=== PATIENT | female | born 1955 | race Caucasian/White ===

== ENCOUNTER 2020-10-31 13:13 | Emergency (ER) | payer OTHER, SELFPAY ==
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
[2020-10-31 13:24] VITALS: BP 117/78; PULSE 69; RESP 16; TEMP 36.5; O2SAT 99
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
== END 2020-10-31 14:25 | disposition home or self-care (01) ==
PROVIDERS: Emergency Provider Registered Nurse Emergency
DX: S52.571A Other intraarticular fracture of lower end of right radius, initial encounter for closed fracture (principal); W18.30XA Fall on same level, unspecified, initial encounter
CPT/HCPCS: 99283; 73110; 99282

== ENCOUNTER 2020-11-13 14:13 | Outpatient (CLI) | payer OTHER, SELFPAY ==
--- NOTE | 2020-11-13 14:00 | DI.RAD_ITS ---
EXAM: XR WRIST RT COMPLETE CLINICAL HISTORY: follow up TECHNIQUE: COMPARISON: CR XR WRIST RT COMPLETE from 10/31/2020 FINDINGS: Three views were obtained. Previously described fracture of the distal radius is again noted, no kristina ss interval change in alignment in comparison prior examination October 31. IMPRESSION: RADIATION DOSE DELIVERED: Total DLP
== END 2020-11-13 14:14 | disposition home or self-care (01) ==
LOC: DIORS 14:14
PROVIDERS: Visit Provider Physician Assistant Surgical
DX: S52.591A Other fractures of lower end of right radius, initial encounter for closed fracture (principal); S63.591A Other specified sprain of right wrist, initial encounter; W19.XXXA Unspecified fall, initial encounter
CPT/HCPCS: 99213; 73110

== ENCOUNTER 2020-12-05 10:23 | Outpatient (CLI) | payer OTHER, SELFPAY ==
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
== END 2020-12-05 10:24 | disposition home or self-care (01) ==
LOC: DIORS 10:24
PROVIDERS: Referring Provider Student in an Organized Health Care Education/Training Program; Visit Provider Student in an Organized Health Care Education/Training Program
DX: S52.591D Other fractures of lower end of right radius, subsequent encounter for closed fracture with routine healing (principal); X58.XXXD Exposure to other specified factors, subsequent encounter
CPT/HCPCS: 99213; 73100

== ENCOUNTER 2021-01-15 12:06 | Outpatient (CLI) | payer OTHER, SELFPAY ==
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
== END 2021-01-15 12:07 | disposition home or self-care (01) ==
LOC: DIORS 12:06
PROVIDERS: Referring Provider Student in an Organized Health Care Education/Training Program; Visit Provider Student in an Organized Health Care Education/Training Program
DX: S52.591D Other fractures of lower end of right radius, subsequent encounter for closed fracture with routine healing (principal); X58.XXXD Exposure to other specified factors, subsequent encounter; M85.88 Other specified disorders of bone density and structure, other site
CPT/HCPCS: 99213; 73100

== ENCOUNTER 2021-12-13 17:22 | Emergency (ER) | payer MEDICARE, SELFPAY ==
[2021-12-13] VITALS (12 sets, daily range): BP systolic 112–139; BP diastolic 70–76; PULSE 78–84; RESP 18; TEMP 37; O2SAT 96–99
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
[2021-12-13] MEDS: Lidocaine/Epinephri/Tetracaine Topical Gel 3 ML TP (17:55)
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
--- NOTE | 2021-12-13 18:25 | NUR.NOTE ---
Nursing Note: PT INFO GIVEN TO CARE MANAGEMENT TO ESTABLISH CARE
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
== END 2021-12-13 19:44 | disposition home or self-care (01) ==
LOC: ER 19:53
PROVIDERS: Emergency Provider Physician Assistant
DX: S01.81XA Laceration without foreign body of other part of head, initial encounter (principal); S62.314A Displaced fracture of base of fourth metacarpal bone, right hand, initial encounter for closed fracture; S62.316A Displaced fracture of base of fifth metacarpal bone, right hand, initial encounter for closed fracture; S09.8XXA Other specified injuries of head, initial encounter; V19.9XXA Pedal cyclist (driver) (passenger) injured in unspecified traffic accident, initial encounter
CPT/HCPCS: 12013; 29125; 90471; 99284; 70450; 73130; 99283

== ENCOUNTER 2021-12-25 14:07 | Outpatient (CLI) | payer MEDICARE, SELFPAY ==
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
== END 2021-12-25 14:08 | disposition home or self-care (01) ==
LOC: DIORS 14:07
PROVIDERS: Visit Provider Physician Assistant
DX: S62.314D Displaced fracture of base of fourth metacarpal bone, right hand, subsequent encounter for fracture with routine healing (principal); S62.316D Displaced fracture of base of fifth metacarpal bone, right hand, subsequent encounter for fracture with routine healing; X58.XXXD Exposure to other specified factors, subsequent encounter
CPT/HCPCS: 99214; 73120

== ENCOUNTER 2022-08-06 04:00 | Outpatient (CLI) | payer MEDICARE, SELFPAY ==
[2022-08-06 12:20] LABS: HGB 12.6 g/dL (11.2-15.7); MCH 30.5 pg (27.0-33.0); MCHC 31.5 % (32.0-36.0); MCV 97 fL (80-95); MPV 11.7 fL (8.0-11.0); Platelet Count 250 10^3/uL (130-400); RBC 4.13 10^6/uL (3.93-5.22); RDW 13.3 % (11.7-14.6); RDW-SD 47.5 fL; WBC 4.41 10^3/uL (4.4-10.8)
[2022-08-06 12:46] LABS: ALT 23 U/L (14-59); AST 21 U/L (15-37); Albumin 3.7 g/dL (3.4-5.0); Alkaline Phosphatase 68 U/L (46-116); Anion Gap 5.5 mmol/L (3-11); BUN 14 mg/dL (7-18); Bilirubin, Total 0.6 mg/dL (0.2-1.0); CO2 29.5 mmol/L (21.0-32.0); CREATININE 0.7 mg/dL (0.55-1.02); Calcium 9.4 mg/dL (8.5-10.1); Calculated LDL 105 mg/dL (<100); Chloride 105 mmol/L (98-107); Cholesterol 193 mg/dL (<200); Estimated GFR 94.73 (mL/min/1.73m2); Glucose 92 mg/dL (74-106); HDL Cholesterol 80 mg/dL (40-60); Potassium 3.7 mmol/L (3.5-5.1); Sodium 140 mmol/L (136-145); Triglyceride 40 mg/dL (<150)
[2022-08-06 13:37] LABS: Hemoglobin A1C 5.3 % (<5.7)
== END 2022-08-06 04:01 | disposition home or self-care (01) ==
LOC: LOS 04:00
PROVIDERS: PCP Nurse Practitioner Family; Visit Provider Nurse Practitioner Family
DX: E55.9 Vitamin D deficiency, unspecified (principal); K64.9 Unspecified hemorrhoids; M85.80 Other specified disorders of bone density and structure, unspecified site; Z76.89 Persons encountering health services in other specified circumstances; E78.5 Hyperlipidemia, unspecified; R73.01 Impaired fasting glucose
CPT/HCPCS: 36415; 80053; 80061; 82306; 85027; 83036; 84443

== ENCOUNTER 2022-09-22 01:53 | Outpatient (CLI) | payer MEDICARE, SELFPAY ==
--- NOTE | 2022-09-22 06:24 | DI.DEXA_ITS ---
Exam(s) XR DEXA BONE DENSITY W/WO RIA EXAM: XR DEXA BONE DENSITY W/WO RIA CLINICAL HISTORY: osteopenia,SCREENING FOR OSTEOPOROSIS, Z78.0 TECHNIQUE: COMPARISON: from 01/01/2021 FINDINGS: Lateral Spine Image: Unremarkable. No compression deformities identified. Left hip: Total T-Score: -2.4. This compares to -2.3 on the prior examination. Total Z-Score: -1.1 T- and Z-scores: Findings are consistent with osteopenia. Lumbar Spine: Total T-Score: -1.9. This compares to -2.3 on the prior examination. Total Z-Score: 0.0 T- and Z-scores: Findings are consistent with osteopenia. IMPRESSION: Osteopenia in the lumbar spine and left hip.
== END 2022-09-22 02:13 ==
PROVIDERS: PCP Nurse Practitioner Family; Visit Provider Nurse Practitioner Family
DX: M85.88 Other specified disorders of bone density and structure, other site (principal); Z78.0 Asymptomatic menopausal state
CPT/HCPCS: 77080

== ENCOUNTER 2023-03-05 02:36 | Outpatient (CLI) | payer MEDICARE, SELFPAY ==
--- NOTE | 2023-03-05 08:45 | DI.MAMMO_ITS ---
Exam(s) MAMMO SCREENING EXAM: MAMMO SCREENING CLINICAL HISTORY: screening, Z12.39 TECHNIQUE: Mammograms were interpreted according to the usual protocol including computer analysis w [employer] CAD system, tomosynthesis and C-view imaging. COMPARISON: Outside comparison films have been requested but not received at this time. The prior e xams become available, an addendum will be issued. FINDINGS: The breasts are composed of heterogeneously dense fibroglandular densities, Breast Density category C . No suspicious masses or suspicious microcalcifications are seen. No skin thickening or abnormal axillary lymph nodes are seen. IMPRESSION: BI-RADS Category 1, Negative mammogram. Yearly screening mammography is recommended. Breast Density Category C, heterogeneously Dense. The mammogram demonstrates the patient's breast tissue is dense. Dense breast tissue is very common a nd is not abnormal but dense breast tissue can make it harder to find cancer on a mammogram. Also, de nse breast tissue may increase breast cancer risk. This information about the result of the mammogram report was provided to the patient to raise their awareness. Use this report when you speak with the patient about their risks for breast cancer, which includes their family history. At that time, you may recommend additional screening tests (Ultrasound or MRI) as they might be useful based on their r isk. A negative radiographic report should not delay biopsy if a dominant or clinically suspicious mass is present. Up to ten percent of cancers are not identified on mammography. A negative report may reinforce clinical impression. Adenosis and dense breasts may obscure an underlying neoplasm. False positive reports average 6 to 10%.
== END 2023-03-05 02:56 ==
PROVIDERS: PCP Nurse Practitioner Family; Visit Provider Nurse Practitioner Family
DX: Z12.31 Encounter for screening mammogram for malignant neoplasm of breast (principal)
CPT/HCPCS: 77063; 77067

== ENCOUNTER 2024-01-18 16:33 | Emergency (ER) | payer MEDICARE, SELFPAY ==
[2024-01-18 16:37] VITALS: BP 124/80; PULSE 80; RESP 16; TEMP 36.8; O2SAT 98
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
--- NOTE | 2024-01-18 17:03 | DI.CT_ITS ---
Exam(s) CT NECK CHEST ABD PEL W EXAM: CT NECK CHEST ABD PEL W CLINICAL HISTORY: pain and swelling at manubrium, difficulty swallow TECHNIQUE: Imaging Protocol: Axial computed tomography images with coronal and sagittal reformatted images were created and reviewed CONTRAST MATERIAL: Oral: / no Intravenous: Omnipaque 350 Contrast volume:150 ml COMPARISON: CT CT HEAD CERVICAL SPINE WO from 01/18/2024 CR XR SHOULDER LT COMPLETE 2+V from 01/18/2024 FINDINGS: Neck: Parotids/submandibular/thyroid gland: Nodules both thyroid lobes. Ultrasound could be considered fo r further evaluation. Lymphadenopathy: There are scattered lymph nodes seen along the level one to level three all measuri ng less than 8 mm in short axis diameter which are physiologic in nature. Carotids/Jugular: Within normal limits. Soft tissues: The floor the mouth is unremarkable. The epiglottis and vocal cords are within normal limits. Bones: No fracture. No lytic or blastic lesions. Chest: Tracheobronchial tree: Patent where visualized. Mediastinum and Leydi: No dominant adenopathy or fluid collection. Pulmonary parenchyma: No consolidation or dominant measurable mass. Pleura: No effusion or pneumothorax. Heart/Aorta: Thoracic aorta non-dilated. The heart is not dilated. No coronary artery calcifications are seen. Pulmonary arteries: No evidence of emboli. Bones: Nondisplaced fracture of the manubrium. No lytic or blastic lesions. ABDOMEN: Liver: Normal density. No measurable mass. Gallbladder and biliary tract: No radiodense calculus or dilation. Pancreas: Normal density, no abnormal calcifications or inflammatory process. Spleen: Normal. Kidneys: Normal size, contour and axis. No radiodense stones or obstructive uropathy. No suspicious m asses seen. Adrenal glands: No masses seen. Abdominal Aorta: Abdominal portion non-dilated. Minimal atherosclerotic changes. PELVIS: Bladder: Symmetric distention, no gross wall thickening. Bowel: No obstruction or bowel wall thickening. Peritoneal cavity: No ascites, collection or mesenteric inflammatory response. Reproductive: Unremarkable. Bones: No acute fractures. Old bilateral L5 spondylolysis and L5-S1 spondylolisthesis. Advanced deg enerative disc changes at L5-S1. IMPRESSION: Nondisplaced fracture of the manubrium. No additional fractures in the chest abdomen or pelvis. No acute abnormality in the abdomen or pelvis. Incidental thyroid nodules. Nonemergent thyroid ultrasound could be performed for further evaluation . RADIATION DOSE DELIVERED: 1,155.13mGy.cm Total DLP 1,155.13mGy.cm Total DLP DATA REPOSITORY: All CT scans at this facility are submitted to the National Radiology Data Registry (NRDR) Dose Index Registry (DIR) with the [employer] (ACR). RADIATION OPTIMIZATION: All CT scans at this facility use at least one of these dose optimization te chniques: automated exposure control; mA and/or kV adjustment per patient size (includes targeted exa ms where dose is matched to clinical indication); or iterative reconstruction.
[2024-01-18 17:34] LABS: Abs Immature Grans 0.03 10^3/uL (0.0-0.06); Absolute Basophil Count 0.03 10^3/uL (0.0-0.2); Absolute Eosinophil Count 0.02 10^3/uL (0.0-0.7); Absolute Lymphocyte Count 2.23 10^3/uL (1.2-3.4); Absolute Monocyte Count 0.53 10^3/uL (0.1-0.8); Absolute Neutrophil Count 6.76 10^3/uL (1.2-6.7); Basophils % 0.3 %; Eosinophils % 0.2 %; HCT 39.2 % (36.0-46.0); HGB 12.9 g/dL (11.2-15.7); Immature Grans % 0.3 %; Lymphocytes % 23.2 %; MCHC 32.9 % (32.0-36.0); MCV 94 fL (80-95); MPV 11.1 fL (8.0-11.0); Monocytes % 5.5 %; Neutrophils % 70.5 %; Platelet Count 202 10^3/uL (130-400); RBC 4.16 10^6/uL (3.93-5.22); RDW-SD 44.2 fL
[2024-01-18 17:51] LABS: ALT 34 U/L (14-59); AST 28 U/L (15-37); Albumin 3.7 g/dL (3.4-5.0); Alkaline Phosphatase 78 U/L (46-116); Anion Gap 8.3 mmol/L (3-11); BUN 13 mg/dL (7-18); Bilirubin, Total 0.4 mg/dL (0.2-1.0); CO2 27.7 mmol/L (21.0-32.0); CREATININE 0.8 mg/dL (0.55-1.02); Calcium 9.8 mg/dL (8.5-10.1); Chloride 106 mmol/L (98-107); Estimated GFR 80.21 (mL/min/1.73m2); Glucose 129 mg/dL (74-106); Potassium 4.4 mmol/L (3.5-5.1); Sodium 142 mmol/L (136-145); Total Protein 7.4 g/dL (6.4-8.2)
[2024-01-18 17:56] LABS: Troponin I < 50 ng/L (< or =60)
[2024-01-18] MEDS: Omnipaque 350 MG/ML 50 ML BTL IJ (18:19)
[2024-01-18] MEDS: Omnipaque 350 MG/ML 100 ML BTL IJ (18:19)
[2024-01-18] MEDS: Normal Saline - Diluent 50 ML VIAL IJ (18:20)
[2024-01-18] MEDS: ACETAMINOPHEN 1,000 MG/100 ML BTL 400 MG IVPB (18:45)
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
== END 2024-01-18 20:19 | disposition home or self-care (01) ==
PROVIDERS: Emergency Provider Physician Assistant; PCP Nurse Practitioner Family
DX: S22.21XA Fracture of manubrium, initial encounter for closed fracture (principal); M54.2 Cervicalgia; R13.10 Dysphagia, unspecified; R07.89 Other chest pain; V18.0XXA Pedal cycle driver injured in noncollision transport accident in nontraffic accident, initial encounter
CPT/HCPCS: 36415; 70491; 74177; 80053; 93005; 96374; 99284; 70450; 71260; 72125; 73030; 84484; 85025; 93010; 99283; J0131; J3490; Q9967

== ENCOUNTER 2024-02-01 08:57 | Outpatient (CLI) | payer MEDICARE, SELFPAY ==
[2024-02-01 13:08] LABS: Calculated LDL 112 mg/dL (<100); Cholesterol 208 mg/dL (<200); HDL Cholesterol 75 mg/dL (40-60); Triglyceride 109 mg/dL (<150)
[2024-02-01 18:57] LABS: HBs Antibody, Quant 3.9 mIU/mL (See Note); Hep B Surface Ab Negative (See Note); Hepatitis B Core Antibody Negative (Negative); Hepatitis B Surface Antigen Negative (Negative)
[2024-02-01 19:20] LABS: HIV-1/2 Ag & Ab Screen Negative (Negative)
[2024-02-01 19:21] LABS: Hepatitis C Ab w Rflx HCV PCR Negative (Negative)
== END 2024-02-01 08:58 | disposition home or self-care (01) ==
LOC: LOS 08:57
PROVIDERS: PCP Nurse Practitioner Family; Referring Provider Nurse Practitioner Family; Visit Provider Nurse Practitioner Family
DX: Z11.59 Encounter for screening for other viral diseases (principal); Z00.00 Encounter for general adult medical examination without abnormal findings; Z11.4 Encounter for screening for human immunodeficiency virus [HIV]
CPT/HCPCS: 36415; 80061; 86704; 86706; 86803; 87340; 87389

== ENCOUNTER → 2024-02-03 14:00 | Outpatient (BNVA) | payer MEDICARE, SELFPAY | PROVIDERS: PCP Nurse Practitioner Family; Referring Provider Nurse Practitioner Family; Visit Provider Student in an Organized Health Care Education/Training Program | DX: M75.102 Unspecified rotator cuff tear or rupture of left shoulder, not specified as traumatic (principal) | CPT/HCPCS: 99213 ==

== ENCOUNTER → 2024-02-22 02:11 | Outpatient (CLI) | payer MEDICARE, SELFPAY ==
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
== END ==
PROVIDERS: PCP Nurse Practitioner Family; Visit Provider Student in an Organized Health Care Education/Training Program
DX: M75.102 Unspecified rotator cuff tear or rupture of left shoulder, not specified as traumatic (principal)
CPT/HCPCS: 73221

== ENCOUNTER → 2024-02-24 14:56 | Outpatient (BNVA) | payer MEDICARE, SELFPAY | PROVIDERS: PCP Nurse Practitioner Family; Referring Provider Nurse Practitioner Family; Visit Provider Student in an Organized Health Care Education/Training Program | DX: M19.012 Primary osteoarthritis, left shoulder (principal) | CPT/HCPCS: 99213 ==

== ENCOUNTER → 2024-03-16 02:30 | Outpatient (CLI) | payer MEDICARE, SELFPAY ==
--- NOTE | 2024-03-16 07:15 | DI.US_ITS ---
Exam(s) US THYROID EXAM: US THYROID CLINICAL HISTORY: assess thyroid nodules seen on CT scan,e04.1. TECHNIQUE: Ultrasound thyroid performed using standard protocol. COMPARISON: No exams were available for comparison FINDINGS: Thyroid nodules were noted incidentally on recent chest CT scan. RIGHT THYROID LOBE: Measures 1.3 cm AP x 1.4 cm wide x 3.7 cm craniocaudal There are 2 nodules in the right lobe, as discussed below. Nodule #1. This is located superiorly in the right lobe. This nodule measures 0.7 x 0.6 x 0.9 cm. TiRads grading of this nodule is as follows: Composition: Solid-2 points Echogenicity: Isoechoic-1 point Shape: Wider than taller-0 points Margin: Smooth- 0 points Echogenic Foci: None-0 points Total Points for this nodule: 3 ACR Ti-Rads Category: TR3 This TR 3 level nodule can be followed conservatively as it measures less than 2.5 cm Nodule #2. This nodule is located more inferiorly in the right lobe. This nodule measures 1.2 x 1.2 x 1.0 cm TiRads grading for this nodule is as follows: Composition: Mixed cystic-solid- 1 point Echogenicity: Hypoechoic- 2 points Shape: Wider than taller- 0 points Margin: Smooth-0 points Echogenic Foci: None-0 points Total points for this nodule: 3 ACR Ti-Rads Category: TR3 This TR 3 level nodule can be followed, as it measures less than 2.5 cm ISTHMUS: Normal thickness. There are no nodules in the isthmus. LEFT THYROID LOBE: Measures 1.7 cm AP x 1.6 wide x 3.9 cm craniocaudal There is a single dominant solid nodule in the left lobe. It measures 2.9 x 1.3 x 1.4 cm. TiRads grading for this nodule is as follows: Composition: Solid-2 points Echogenicity: Isoechoic-1 points Shape: Taller than wider in the transverse plane-3 points Margin: Smooth-0 points Echogenic Foci: Contains macrocalcification-1 points Total points for this nodule: 7 ACR Ti-Rads Category: 5 This nodule should undergo ultrasound-guided FNA as it measures greater than 1 cm. LYMPH NODES: There is no significant adenopathy. IMPRESSION: 1. There is a dominant 2.9 x 1.3 x 1.4 cm solid nodule in the left lobe which qualifies as a TR 5 lev el nodule. As it measures greater than 1 cm (it measures 2.9 cm) it should undergo ultrasound-guided FNA. 2. The 2 findings in the right lobe can be followed more conservatively. 3. There is no significant lymphadenopathy. DATA REPOSITORY:
== END ==
PROVIDERS: PCP Nurse Practitioner Family; Visit Provider Nurse Practitioner Family
DX: E04.2 Nontoxic multinodular goiter (principal)
CPT/HCPCS: 76536

== ENCOUNTER 2024-03-18 17:58 | Emergency (ER) | payer MEDICARE, SELFPAY ==
[2024-03-18 18:17] VITALS: BP 120/68; PULSE 75; RESP 18; TEMP 36.6; O2SAT 100
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
[2024-03-18] MEDS: ACETAMINOPHEN 1,000 MG/100 ML BTL 400 MG IVPB (18:54)
[2024-03-18] MEDS: Cyclobenzaprine 10 MG TAB PO (18:55)
[2024-03-18 18:59] LABS: Abs Immature Grans 0.09 10^3/uL (0.0-0.06); Absolute Basophil Count 0.01 10^3/uL (0.0-0.2); Absolute Eosinophil Count 0.04 10^3/uL (0.0-0.7); Absolute Lymphocyte Count 1.36 10^3/uL (1.2-3.4); Absolute Monocyte Count 0.42 10^3/uL (0.1-0.8); Absolute Neutrophil Count 7.66 10^3/uL (1.2-6.7); Basophils % 0.1 %; Eosinophils % 0.4 %; HCT 38.1 % (36.0-46.0); HGB 12.6 g/dL (11.2-15.7); Immature Grans % 0.9 %; Lymphocytes % 14.2 %; MCH 31.2 pg (27.0-33.0); MCHC 33.1 % (32.0-36.0); MCV 94 fL (80-95); Monocytes % 4.4 %; Platelet Count 182 10^3/uL (130-400); RBC 4.04 10^6/uL (3.93-5.22); RDW 12.9 % (11.7-14.6); RDW-SD 44.9 fL; WBC 9.58 10^3/uL (4.4-10.8)
[2024-03-18 19:13] LABS: ALT 28 U/L (14-59); AST 30 U/L (15-37); Albumin 3.7 g/dL (3.4-5.0); Alkaline Phosphatase 74 U/L (46-116); Anion Gap 10.9 mmol/L (3-11); BUN 15 mg/dL (7-18); Bilirubin, Total 0.58 mg/dL (0.2-1.0); CO2 26.1 mmol/L (21.0-32.0); CREATININE 0.8 mg/dL (0.55-1.02); Calcium 9.8 mg/dL (8.5-10.1); Chloride 105 mmol/L (98-107); Estimated GFR 80.21 (mL/min/1.73m2); Glucose 108 mg/dL (74-106); Magnesium 2.1 mg/dL (1.8-2.4); Potassium 3.7 mmol/L (3.5-5.1); Sodium 142 mmol/L (136-145); Total Protein 6.8 g/dL (6.4-8.2)
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
[2024-03-18] MEDS: HYDROmorphone 2 MG/ML SYR 0.5 MG IVP ×2 (22:09→22:52)
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
== END 2024-03-18 21:41 ==
PROVIDERS: Emergency Provider Emergency Medicine; PCP Nurse Practitioner Family
DX: S09.8XXA Other specified injuries of head, initial encounter (principal); S12.001A Unspecified nondisplaced fracture of first cervical vertebra, initial encounter for closed fracture; S22.040A Wedge compression fracture of fourth thoracic vertebra, initial encounter for closed fracture; S22.028A Other fracture of second thoracic vertebra, initial encounter for closed fracture; S22.038A Other fracture of third thoracic vertebra, initial encounter for closed fracture; S22.42XA Multiple fractures of ribs, left side, initial encounter for closed fracture; V19.88XA Pedal cyclist (driver) (passenger) injured in other specified transport accidents, initial encounter; Y92.482 Bike path as the place of occurrence of the external cause; Y93.55 Activity, bike riding
CPT/HCPCS: 36415; 73562; 80053; 96365; 96375; 96376; 99285; 70450; 72125; 72128; 72131; 83735; 85025; 99284; J0131; J1170

== ENCOUNTER 2024-04-08 15:12 | Outpatient (REF) | payer MEDICARE, SELFPAY ==
[2024-04-08 21:29] LABS: FREE T4 1.12 ng/dL (0.76-1.46); TSH 0.79 uIU/Ml (0.36-3.74)
[2024-04-09 22:36] LABS: T3, Total 140 ng/dL (97-169)
== END 2024-04-08 15:13 | disposition home or self-care (01) ==
LOC: LBN 15:12
PROVIDERS: PCP Nurse Practitioner Family; Visit Provider Nurse Practitioner Family
DX: E04.1 Nontoxic single thyroid nodule (principal); I77.74 Dissection of vertebral artery; S22.009A Unspecified fracture of unspecified thoracic vertebra, initial encounter for closed fracture; S12.000A Unspecified displaced fracture of first cervical vertebra, initial encounter for closed fracture; V18.2XXA Unspecified pedal cyclist injured in noncollision transport accident in nontraffic accident, initial encounter
CPT/HCPCS: 84439; 84443; 84480

== ENCOUNTER 2024-08-07 12:22 | Emergency (ER) | payer MEDICARE, SELFPAY ==
--- NOTE | 2024-08-07 12:30 | DI.RAD_ITS ---
Exam(s) XR FOOT RT COMPLETE EXAM: XR FOOT RT COMPLETE CLINICAL HISTORY: r foot pain. TECHNIQUE: 2D digital imaging was performed. Three views. COMPARISON: No exams were available for comparison FINDINGS: BONES: No acute fracture is present. No bony destructive lesion is seen. Plantar calcaneal spur. JOINTS: No dislocation present. SOFT TISSUE: Mild soft tissue swelling adjacent to the 5th MTP joint. IMPRESSION: No acute fracture. DATA REPOSITORY: RADIATION DOSE DELIVERED:
--- NOTE | 2024-08-07 12:30 | DI.RAD_ITS ---
Exam(s) XR ANKLE RT COMPLETE EXAM: XR ANKLE RT COMPLETE CLINICAL HISTORY: r ankle pain. TECHNIQUE: 2D digital imaging was performed. Three views. COMPARISON: No exams were available for comparison FINDINGS: BONES: No acute fracture is present. No bony destructive lesion is seen. Plantar calcaneal spur. JOINTS: The ankle mortise is normally aligned. Ankle joint effusion. SOFT TISSUE: Mild calcification in the distal Achilles tendon. IMPRESSION: Joint effusion. No evidence of fracture. DATA REPOSITORY: RADIATION DOSE DELIVERED:
[2024-08-07 12:31] VITALS: BP 120/64; PULSE 87; RESP 16; O2SAT 97
--- NOTE | 2024-08-07 13:00 | ED.GENADUL_ITS ---
Discharge Plan Disposition Patient Disposition: Home Condition: Stable Discharge Details Clinical Impression: Right ankle sprain Primary Care Provider: Kerline Morel ED Provider: Sera Calvo Home Meds and New Rx's Prescriptions: No Action turmeric 400 mg capsule 400 mg PO DAILY estradiol 0.01 % (0.1 mg/gram) cream 0.5 g vaginal .Twice a week Qty: 42.5 4RF calcium carbonate 600 mg calcium (1,500 mg) tablet 1,200 mg PO DAILY aspirin 81 mg tablet,delayed release (DR/EC) 81 mg PO DAILY acetaminophen 500 mg capsule 1,000 mg PO TID PRN Rx Instructions: per [place] discharge multivitamin Tablet 1 tab PO DAILY Discharge Instructions Instructions: Ankle Sprain ED Additional Instructions: Your x-ray imaging does not reveal any fracture or broken bones Symptoms due to an ankle sprain You want to maintain mobility in your ankle, due to stretching and strengthening exercises like spelling the alphabet with your foot You can wear the boot provided as needed for ambulation particularly at work HPI General Date/Time Provider Initiated Documentation: 08/07/24 12:37 . Limitations to Documentation: no limitations . Information obtained by: patient . HPI Narrative: 69-year-old female without significant past medical history presents for evaluation of right foot and ankle pain. Onset just prior to arrival while skiing. She says that she went over a bump and came down and felt like she crushed her ankle. She reports pain improved with Motrin and Tylenol at home as well as ice taken prior to arrival. She reports pain worse with walking or palpation of the front of her ankle. Denies any numbness or tingling. Related Data Home Medications ?Medication ?Instructions ?Recorded ?Confirmed turmeric 400 mg capsule 400 mg PO DAILY 11/13/20 08/07/24 estradiol 0.01% (0.1 mg/gram) 0.5 g vaginal .Twice a week #42.5 02/01/24 08/07/24 vaginal cream grams calcium carbonate 1,200 mg PO DAILY 03/07/24 08/07/24 multivitamin 1 tab PO DAILY 03/18/24 08/07/24 acetaminophen 500 mg capsule 1,000 mg PO TID PRN 03/30/24 08/07/24 aspirin 81 mg tablet,delayed 81 mg PO DAILY 04/08/24 08/07/24 release Previous Rx's ?Medication ?Instructions ?Recorded estradiol 0.01% (0.1 mg/gram) 0.5 g vaginal .Twice a week #42.5 02/01/24 vaginal cream grams Allergies Allergy/AdvReac Type Severity Reaction Status Date / Time No Known Allergies Allergy Unverified 08/07/24 12:33 General Stated Complaint: Orthopedic TOM: 4 Exam Narrative Exam Narrative: Review of Systems: All systems reviewed & are unremarkable except as noted in HPI and below Well-developed, no acute distress NCAT Unlabored respiratory effort Right knee normal nontender full range of motion Proximal tibia nontender, calf nontender, Achilles tendon intact There is lateral malleolus swelling with mild tenderness, no proximal fifth metatarsal head tenderness, no obvious deformity, 2+ pulse, good cap refill Course Vital Signs Vital signs: Vital Signs Pulse 87 08/07/24 12:31 Respiratory Rate 16 08/07/24 12:31 Blood Pressure 120/64 08/07/24 12:31 Pulse Oximetry 97 08/07/24 12:31 Pulse 87 08/07/24 12:31 Respiratory Rate 16 08/07/24 12:31 Respiratory Effort Normal, Non-Labored 08/07/24 12:34 Blood Pressure 120/64 08/07/24 12:31 Blood Pressure Position Sitting 08/07/24 12:31 Pulse Oximetry 97 08/07/24 12:31 Oxygen Delivery Method Room Air 08/07/24 12:31 Oxygen Flow Rate 0 08/07/24 12:31 Pain Level 3 08/07/24 12:31 Medical Decision Making Emergent evaluation of acute traumatic right ankle injury. No obvious deformity on exam. She is neurovascularly intact. Initial differential includes ligamentous injury, soft tissue injury, fracture. Pain is well-controlled by medications taken prior to arrival. Will get x-ray imaging to further evaluate. X-ray imaging reviewed, there is no acute bony process. 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 Otherwise I advised that she should not completely immobilize her ankle and continue to do strengthening and range of motion exercises. Follow-up with PCP if symptoms or not improving. Quality:SDOH Health Related Social Needs: No Data to Display PFSH All Active Problems (Updated 08/07/24 @ 14:15 by Sera Calvo MD) Right ankle sprain (Acute) Vertebral artery dissection (Acute ~02/2024) Thyroid nodule (Acute) Pelvic relaxation (Acute) Arthritis of left acromioclavicular joint (Acute) Primary osteoarthritis, left shoulder (Acute) Left rotator cuff tear (Acute 01/18/24) Pelvic floor weakness (Chronic) Genitourinary syndrome of menopause (Chronic) Hyperlipidemia (Chronic) Osteoarthritis (Chronic) Osteopenia (Chronic) Dexa 2022 Hemorrhoids (Chronic) Medical History Right ovarian cyst Vitamin D deficiency Surgical History H/O tubal ligation 1984 ruptured ectopic 1991 remaining tube ligation History of laparotomy for ruptured ectopic H/O arthroscopy of left knee x2 H/O section Family History Mother , 94 Depression Stroke Father , 83 Alzheimer's dementia Sister Depression Sister , 55 Glioblastoma Brother No problems noted. Son Alcohol use disorder Daughter No problems noted. Daughter No problems noted. Maternal Grandfather No problems noted. Maternal Grandmother No problems noted. Paternal Grandfather No problems noted. Paternal Grandmother No problems noted. Social History Smoking/Tobacco Use Status: Never Second Hand Exposure: No Smoking risk assessment performed?: Yes Alcohol Intake: current Alcohol Intake frequency: a few times a week Alcohol type: beer Drug use: Never Substance use type: does not use Caregiver/Support person: No Household members: spouse Housing: house Communication Needs: None Do you need help understanding health information?: Rarely Pets and animals: Yes Pets and animals: cat(s) Sexually active: Yes Do you think of yourself as: straight/heterosexual Current gender identity: female What is your relationship status?: How often do you talk on the phone with friends or family?: three or more times per week How often do you get together with friends or relatives?: three or more times per week How often do you attend jew or orthodox services?: decline to answer Do you belong to any clubs or organized social groups?: yes Panel score (0-1 are the most socially isolated patients): 3 What type of physical activity do you participate in: bicycling and running Duration: 60-90 minutes/day Denise/Episcopalian: Faith Special denise needs: No Seatbelt use: always Helmet use: Yes Drive intox or ride w/intox 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 Date GA/Weeks # Preg Succ Route Wgt Sex Labor Lgth Anesth esia Location Prov Complic 10/02/86 Yes Female [place], [place] 02/16/90 Yes vaginal Male [place], [place]HEAL 11/14/93 Yes vaginal Female [facility] Delivery Date: 10/02/86 Last Updated by: MARJAN Paige Delivery Date: 02/16/90 Last Updated by: MARJAN Paige
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
[2024-08-07 14:23] VITALS: BP 120/64; PULSE 87; RESP 16; O2SAT 97
== END 2024-08-07 14:42 | disposition home or self-care (01) ==
PROVIDERS: Emergency Provider Emergency Medicine; PCP Nurse Practitioner Family
DX: S93.401A Sprain of unspecified ligament of right ankle, initial encounter (principal); W00.0XXA Fall on same level due to ice and snow, initial encounter; Y93.23 Activity, snow (alpine) (downhill) skiing, snowboarding, sledding, tobogganing and snow tubing; Y92.838 Other recreation area as the place of occurrence of the external cause
CPT/HCPCS: 99283; 73610; 73630

== ENCOUNTER 2024-09-02 13:02 | Outpatient (CLI) | payer MEDICARE, SELFPAY ==
--- NOTE | 2024-09-02 11:30 | DI.MRI_ITS ---
Exam(s) MR LOWER JOINT RT WO EXAM: MR LOWER JOINT RT WO CLINICAL HISTORY: s93.401A right ankle sprain not healing well, ligment of Rt anlke TECHNIQUE: Multiplanar multisequence MRI was performed without intravenous contrast. COMPARISON: CR,XR XR ANKLE RT COMPLETE from 08/07/2024 CR,XR XR FOOT RT COMPLETE from 08/07/2024 FINDINGS: SKIN: No evidence of ulcer nor subcutaneous tract. BONES/JOINTS: There is a tibiotalar joint effusion with synovial thickening. There is also an effusion in the sub talar-talocalcaneal joint. There is prominent bone edema in the talus, most concentrated at the level the talar neck and there i s a transverse fracture through the subarticular lateral aspect of the inferior talus with the fractu re line violating the sub talar-talocalcaneal joint space. The fracture fragment measures 1.8 cm wide by 1.4cm AP by 0.9 cm craniocaudal. The anterior aspect of the fracture is at the posterior border o f the sinus tarsi. However, there is preservation of fat signal within the sinus tarsi. The bone marvel a extends to the anterior aspect of the talar dome ends towards the posterior process of the talus. T here is also bone edema in the subarticular aspect of the mid calcaneus extending posteriorly to the level of the Achilles insertion (which is intact) and there is also some bone edema evident in the strauss stentacular talus but without a fracture of this structure evident. There is, however, tenosynovitis evident within the flexor hallucis longus tendon which is subjacent to the sustentaculum talus.. Ther e is no tear nor displacement of this tendon. There is no bone edema evident in the navicular and cub oid bones nor within the anterior process of the calcaneus (which appears intact). There is no abnorm al signal in the cuneiform bones with the exception of some mild degenerative changes of the 1st tars ometatarsal joint. There are no fractures evident in the metatarsal bases. LIGAMENTS: The anterior and posterior tibiofibular ligaments appear intact. The anterior talofibular ligament area exhibits abnormal signal and this ligament is not identified a s a distinct structure and most probably torn. There is also fluid signal in the anterolateral gutte r the posterior talofibular ligament appears intact. Calcaneofibular ligament appears intact On the medial aspect the ankle there is no obvious tear of the deltoid ligament. SINUS TARSI: As described above, the fracture of the talus extends to the sinus tarsi space. However , there is no loss of the normal fat signal within this space and the interosseous ligaments in the s pace appear intact. There is no evidence of sinus tarsi ganglion cyst. MUSCULOTENDINOUS STRUCTURES: Achilles tendon: Unremarkable. No evidence of tear nor tendinitis/tendinosis. Plantar fascia: Unremarkable. No evidence of tear, abnormal thickening, nor abnormal nodularity. Anterior Extensor tendons: Tibialis anterior tendon appears unremarkable. There is mild tenosynoviti s of lateral extensor tendons but no tears these tendons evident. Medial Tendons: Posterior Tibialis: No tear or tenosynovitis evident. Flexor Digitorum longus: No tear nor prominent tenosynovitis. Flexor Hallicus longus: Tenosynovitis evident. No tear nor displacement. Lateral Tendons: Peroneus longus: Tenosynovitis. No tear. Peroneus brevis:Tenosynovitis. No tear. OTHER FINDINGS: Moderate size inferior calcaneal spur without bone edema at this level. IMPRESSION: 1. There is a fracture of the inferior aspect of the talus immediately posterior to the sustentacular talus and with the fracture line extending into the posterior aspect of the sinus tarsi as well as v iolating the articular surface of the posterior facet of the subtalar (talocalcaneal) joint. The fra cture fragment measures 18 x 14 x 9 mm. There are also microtrabecular fracture lines in the talar n nataliya and there is abundant bone edema within the talus and the subarticular aspect of the calcaneus an d extending posteriorly to the superior aspect of the posterior process of the calcaneus. The anteri or process of the calcaneus appears unremarkable and there is also no abnormal intraosseous signal in the navicular and cuboid bones nor abnormalities of the talonavicular and calcaneocuboid articulatio ns. 2. There are no tendon tears but there is multilevel tenosynovitis, most prominent around the flexor hallucis longus at and distal to the sustentacular talus. There is mild bone edema in the sustentacu lar talus but no fracture evident at this level 3. Minimal findings in the sinus tarsi, with preserved fat signal therein. No evidence of sinus tars i ganglion cyst. 4. There is abundant edema in the region of the anterior talofibular ligament which is suspected to be torn. Posterior talofibular ligament appears intact. If clinically indicated follow-up CT scan can be performed. DATA REPOSITORY:
== END 2024-09-02 13:22 ==
LOC: DI 13:03
PROVIDERS: PCP Nurse Practitioner Family; Visit Provider Nurse Practitioner Family
DX: S92.131A Displaced fracture of posterior process of right talus, initial encounter for closed fracture (principal); X58.XXXA Exposure to other specified factors, initial encounter
CPT/HCPCS: 73721

== ENCOUNTER 2024-09-07 15:55 | Outpatient (CLI) | payer MEDICARE, SELFPAY ==
--- NOTE | 2024-09-07 13:15 | DI.RAD_ITS ---
Exam(s) XR ANKLE RT COMPLETE EXAM: XR ANKLE RT COMPLETE CLINICAL HISTORY: F/U FRACTURE. TECHNIQUE: 2D digital imaging was performed. COMPARISON: CR,XR XR ANKLE RT COMPLETE from 08/07/2024 MR MR LOWER JOINT RT WO from 09/02/2024 MRI scan of 09/02/2024 was reviewed FINDINGS: 3 views The recently MRI described fracture in the inferior aspect of the talus is subtly identified, immedia tely posterior to the sustentacular talus and violating the articular surface of the posterior facet of the sub talar joint. This is quite subtle but is more evident than on the original plain films of 08/07/2024; best seen on the MRI images. There is does not appear to be further displacement of the fracture fragment which was described on the MRI as measuring approximately 18 x 14 x 9 mm. The ant erior aspect of the fracture line is at the posterior border of the sinus tarsi. The prominent bone edema in the talus and bone edema in the subarticular and upper calcaneus is not able to be appreciat ed on plain films. There are no obvious fracture lines in the calcaneus. Moderate size inferior calcaneal spur is noted. There is also calcification in the plantar fascia at this level. There is no evidence of fracture or widening the ankle mortise. Talar dome Bone density normal. No osseous lesions. Posteriorly there is longtitudinally vertically orientated thin calcification within the insertional aspect of the Achilles tendon, this linear calcification measuring 2 cm length by 0.1 cm. There is no prominent thickening of the Achilles tendon at this level. IMPRESSION: The inferior talar fracture described on recent MRI scan is identified on these plain film images. M inimal displacement, unchanged from MRI of 09/02/2024. Other findings as above DATA REPOSITORY: RADIATION DOSE DELIVERED:
== END 2024-09-07 15:56 | disposition home or self-care (01) ==
LOC: DIORS 15:55
PROVIDERS: PCP Nurse Practitioner Family; Referring Provider Nurse Practitioner Family; Visit Provider Student in an Organized Health Care Education/Training Program
DX: S92.154A Nondisplaced avulsion fracture (chip fracture) of right talus, initial encounter for closed fracture; S93.491A Sprain of other ligament of right ankle, initial encounter; W22.09XA Striking against other stationary object, initial encounter; Y93.23 Activity, snow (alpine) (downhill) skiing, snowboarding, sledding, tobogganing and snow tubing
CPT/HCPCS: 99213; 73610

== ENCOUNTER 2024-10-18 15:33 | Outpatient (CLI) | payer MEDICARE, SELFPAY ==
--- NOTE | 2024-10-18 14:00 | DI.RAD_ITS ---
Exam(s) XR ANKLE RT 2V EXAM: XR ANKLE RT 2V CLINICAL HISTORY: F/U FRACTURE. TECHNIQUE: 2D digital imaging was performed. COMPARISON: MR MR LOWER JOINT RT WO from 09/02/2024 CR XR ANKLE RT COMPLETE from 09/07/2024 MRI scan of 09/02/2024 FINDINGS: 3 views The fracture line in the inferior aspect of the talus is still evident and again noted to reach the s ubtalar joint space. There is no further displacement me. No height loss. Talar dome unremarkable. All malleoli are intact. There is a moderate size inferior calcaneal spur again noted and there is some calcification within the plantar fascia at this level. There is also thin vertically orientate d calcification within the insertional aspect of the Achilles tendon which is most probably related t o chronic tendinosis of the Achilles tendon. There is also some increased density within the pre Ach illes fat. Os trigonum is again noted. IMPRESSION: Persistently visible fracture line in the inferior talus, as previously described. Calcification in the plantar fascia as well as within the distal Achilles tendon again noted. DATA REPOSITORY: RADIATION DOSE DELIVERED:
== END 2024-10-18 15:34 | disposition home or self-care (01) ==
LOC: DIORS 15:33
PROVIDERS: PCP Nurse Practitioner Family; Referring Provider Nurse Practitioner Family; Visit Provider Student in an Organized Health Care Education/Training Program
DX: S92.101D Unspecified fracture of right talus, subsequent encounter for fracture with routine healing (principal); S93.491D Sprain of other ligament of right ankle, subsequent encounter; X58.XXXD Exposure to other specified factors, subsequent encounter
CPT/HCPCS: 99213; 73600

== ENCOUNTER 2024-12-02 00:59 | Outpatient (CLI) | payer MEDICARE, SELFPAY ==
[2024-12-02 16:25] LABS: Calcium 9.5 mg/dL (8.5-10.1); TSH 3.79 uIU/mL (0.36-3.74)
[2024-12-05 09:58] LABS: Parathyroid Hormone,Intact 58.1 pg/mL (19.0-88.0)
== END 2024-12-02 01:00 | disposition home or self-care (01) ==
PROVIDERS: PCP Nurse Practitioner Family; Visit Provider Student in an Organized Health Care Education/Training Program
DX: E04.1 Nontoxic single thyroid nodule (principal)
CPT/HCPCS: 36415; 82310; 83970; 84443

== ENCOUNTER 2025-03-09 14:18 | Outpatient (CLI) | payer MEDICARE, SELFPAY ==
[2025-03-09 15:03] LABS: Anion Gap 7.8 mmol/L (3-11); BUN 15 mg/dL (7-18); CO2 28.2 mmol/L (21.0-32.0); Calcium 8.9 mg/dL (8.5-10.1); Calculated LDL 98 mg/dL (<100); Chloride 105 mmol/L (98-107); Cholesterol 189 mg/dL (<200); Estimated GFR 97.10 (mL/min/1.73m2); Glucose 108 mg/dL (74-106); HDL Cholesterol 71 mg/dL (>or=50); Potassium 4.1 mmol/L (3.5-5.1); Sodium 141 mmol/L (136-145); Triglyceride 103 mg/dL (<150)
== END 2025-03-09 14:19 | disposition home or self-care (01) ==
LOC: LBO 14:19
PROVIDERS: PCP Nurse Practitioner Family; Visit Provider Nurse Practitioner Family
DX: E78.5 Hyperlipidemia, unspecified (principal); Z00.00 Encounter for general adult medical examination without abnormal findings; E04.1 Nontoxic single thyroid nodule
CPT/HCPCS: 36415; 80048; 80061

== ENCOUNTER → 2025-04-12 13:28 | Outpatient (BNVA) | payer MEDICARE, SELFPAY | PROVIDERS: PCP Nurse Practitioner Family; Referring Provider Nurse Practitioner Family; Visit Provider Surgery | DX: Z12.11 Encounter for screening for malignant neoplasm of colon (principal) | CPT/HCPCS: S0285 ==

== ENCOUNTER 2025-04-12 14:25 | Outpatient (CLI) | payer MEDICARE, SELFPAY ==
[2025-04-12 16:09] LABS: TSH (W/Ref FT4) 1.82 uIU/mL (0.36-3.74)
== END 2025-04-12 14:26 | disposition home or self-care (01) ==
LOC: LBO 14:25
PROVIDERS: PCP Nurse Practitioner Family; Visit Provider Surgery
DX: E89.0 Postprocedural hypothyroidism (principal); R79.89 Other specified abnormal findings of blood chemistry
CPT/HCPCS: 36415; 84443

== ENCOUNTER 2025-05-08 09:55 | Day surgery (SDC) | payer MEDICARE, SELFPAY ==
[2025-05-08] VITALS (15 sets, daily range): BP systolic 92–121; BP diastolic 54–76; PULSE 52–70; RESP 13–19; TEMP 36.3–36.8; O2SAT 95–100; BMI 21.0
[2025-05-08] MEDS: Lactated Ringers 1,000 ML 80 ML IV (10:39)
--- NOTE | 2025-05-08 11:36 | W.ANESPRE ---
General Info Date of Service Date Performed: 05/08/25 Height: 5 ft 4 in Weight: 55.7 kg Body Mass Index (BMI): 21.0 Surgical Procedure: Operation Date: 05/08/25 11:05 Proposed Procedure Side Surgeon p Colonoscopy Kacey Escoto MD Meds Allergies and Home Medications Allergies Allergy/AdvReac Type Severity Reaction Status Date / Time No Known Allergies Allergy Verified 05/08/25 10:12 Home Medication ?Medication ?Instructions ?Recorded turmeric 400 mg capsule 400 mg PO DAILY 11/13/20 acetaminophen 500 mg capsule 1,000 mg PO TID PRN 03/30/24 bisacodyl 5 mg tablet,delayed 5 mg PO ONCE colonscopy bowel prep 04/12/25 release (Dulcolax (bisacodyl)) #4 tabs cholecalciferol (vitamin D3) 25 25 mcg PO DAILY 04/12/25 mcg (1,000 unit) capsule polyethylene glycol 3350 17 238 g PO ONCE colonoscopy prep 04/12/25 gram/dose oral powder #238 grams estradiol 0.01% (0.1 mg/gram) 0.5 g vaginal .Twice a week #42.5 04/17/25 vaginal cream grams Current Visit Medications: Current Medications Generic Name Dose Route Start Last Admin Trade Name Freq PRN Reason Stop Dose Admin Ringer's Solution 1,000 mls @ 80 mls/hr 05/08/25 06:00 05/08/25 10:39 IV 06/04/25 23:59 80 mls/hr INFUSION JOE Administration IV Miscellaneous Supplies 1 each 05/08/25 06:00 Iv Access IV 06/04/25 23:59 DIRECTED JOE Sodium Biphosphate/Sodium Phosphate 133 ml 05/08/25 06:00 Na Phosphate Enema-Adult 133 Ml Btl KS 06/04/25 23:59 DIRECTED PRN Sodium Chloride 0 ml 05/08/25 06:00 Normal Saline Flush 10 Ml Syr IV 06/04/25 23:59 PRN PRN Sodium Chloride 0 ml 05/08/25 06:00 Normal Saline 10 Ml Vial IJ 06/04/25 23:59 DIRECTED PRN Sterile Water 0 ml 05/08/25 06:00 Water,Injection,Sterile 10 Ml Vial IJ 06/04/25 23:59 DIRECTED PRN PFSH Active Problems Active Problems: Problem Status Onset Code Positive colorectal cancer screening using Cologuard test Acute R19.5 Tear of talofibular ligament of right lower extremity Acute S93.491A Fracture of right talus Acute ~07/2024 S92.101A Vertebral artery dissection Acute ~02/2024 I77.74 Thyroid nodule Chronic E04.1 Pelvic relaxation Acute N81.89 Arthritis of left acromioclavicular joint Acute M19.012 Primary osteoarthritis, left shoulder Acute M19.012 Left rotator cuff tear Acute 01/18/24 M75.102 Pelvic floor weakness Chronic N81.89 Genitourinary syndrome of menopause Chronic N95.8 Hyperlipidemia Chronic E78.5 Osteoarthritis Chronic M19.90 Osteopenia Chronic M85.80 Hemorrhoids Chronic K64.9 Medical History Medical History Right ovarian cyst Vitamin D deficiency Surgical History Surgical History S/P partial thyroidectomy (09/27/24) Left thyroid lobectomy, partial parathyroidectomy H/O tubal ligation 1984 ruptured ectopic 1991 remaining tube ligation History of laparotomy for ruptured ectopic H/O arthroscopy of left knee x2 H/O section Tobacco Smoking/Tobacco Use Status: Never Passive smoking exposure: No Second hand exposure: No Alcohol Alcohol Intake: current Alcohol intake frequency: a few times a week Alcohol type: beer Substance Use Substance use: Never Substance use type: does not use Prental History History 7 Para 3 Hx # Term Pregnancies 3 Multiple births Hx # Pregnancies Ectopic pregnancies 4 AB induced Hx Number of Living Children 3 AB spontaneous Past Pregnancies Del. Date GA/Weeks # Preg Succ Route Wgt Sex Labor Lgth Anesthesia Location Prov Complic 10/02/86 Yes Female [place], [place] 02/16/90 Yes vaginal Male [place], [place] 11/14/93 Yes vaginal Female [facility] Delivery Date: 10/02/86 Last Updated by: Annette Soler RN [place] Delivery Date: 02/16/90 Last Updated by: MARJAN Paige Vital Signs and Lab Results Vital Signs Most Recent Vital Signs in EMR: Most Recent Vital Signs Temp Pulse Resp BP Pulse Ox 36.6 C 66 16 112/72 100 05/08/25 10:07 05/08/25 10:07 05/08/25 10:07 05/08/25 10:07 05/08/25 10:07 Lab Results Thyroid Panel: TSH, (0.36-3.74) 1.82 uIU/mL 04/12/25, 14:41 Imaging and Studies Imaging and Studies Study information below may be from another EMR and interpreted by another provider. Please see original notes in EMR for more complete details. EKG Summary: 01/18/24: Exam: Resting ECG Reason for Exam: chest trauma Patient Location: E HR:82 bpm ECG Measurements Heart Rate 82 AXIS KS 200 P 62 QRSd 70 QRS 53 QT 342 T45 QTc 401 Conclusion Sinus rhythm...normal P axis, V-rate 60- 99 Consider anteroseptal infarct...Q >30mS, dimin R, V1-V2 Anesthesia Assessment and Plan Anesthesia History Personal History: No History of Anesthesia Complications Family History: No Family History of Anesthesia Complications Exercise Tolerance Exercise Tolerance: Metabolic Equivalents>4 Pertinent Negatives Pertinent Negatives: No Symptoms of GERD, No Major Cardiovascular Symptoms or Complaints and No Major Pulmonary Symptoms or Complaints Cardiac & Pulmonary Exam Cardiac Exam: Normal S1/S2 Heart Sounds Pulmonary Exam: Clear Bilateral Breath Sounds Implantable Cardiac Device Does patient have a Pacemaker or an ICD?: No Airway Exam Known Difficult Airway: No Mallampati Class: 1 Mouth Opening: Normal (> 3cm) Thyromental Distance: Greater than 3 cm Neck Range of Motion: Full ROM Neck Circumference: Normal Teeth Condition: Normal Dentition ASA Classification ASA Score: ASA 2 Emergency Case?: No NPO Status NPO Status: NPO Clears >2 hours, Solids >8 hours Anesthesia Plan Resuscitation Status: Full Code Anesthesia Technique: General Anesthesia Airway Planned: Natural Airway Monitors Used: Standard Monitors
--- NOTE | 2025-05-08 12:41 | W.PM.DSUDISC ---
Date of service: 05/08/25 Discharge Plan Disposition Patient Disposition: Home Discharge Details Attending Provider: Kacey Escoto Primary Care Provider: Kerline Morel Recommendations for Follow Up Recommended tests to be ordered by follow up provider: Normal colonoscopy, next colonoscopy due in 10 years Home Meds and New Rx's Prescriptions: Continued turmeric 400 mg capsule 400 mg PO DAILY cholecalciferol (vitamin D3) 25 mcg (1,000 unit) capsule 25 mcg PO DAILY bisacodyl [Dulcolax (bisacodyl)] 5 mg tablet,delayed release (DR/EC) 5 mg PO ONCE Qty: 4 0RF Rx Instructions: take per colonoscopy instructions polyethylene glycol 3350 17 gram/dose powder 238 g PO ONCE Qty: 238 0RF Rx Instructions: take per colonoscopy instructions acetaminophen 500 mg capsule 1,000 mg PO TID PRN Rx Instructions: per [facility] [place] discharge estradiol 0.01 % (0.1 mg/gram) cream 0.5 g vaginal .Twice a week Qty: 42.5 4RF Discharge Instructions Additional Instructions: Normal colonoscopy, your cologuard test was a false positive. You are no longer a candidate for cologuard testing. You have a tortuous colon, which means your colon has sharp turns and is narrow to navigate through for colonoscopy. You may feel achey or sore in your abdomen for a day or so and this would be normal and expected. Please call and let us know if you have discomfort that is not getting better or is severe. See you in 10 years! You did great. Stand Alone Forms: Anesthesia Discharge Inst., Colonoscopy Post Instructions, Otoniel Grier (DSU) Activity:: Activity as Tolerated Diet:: As Tolerated Discharge Orders Discharge Orders: Discharge Order (Routine); Ordered 05/08/25 Ordered By: Kacey Escoto DS: Diagnosis Discharge Diagnosis (1) Positive colorectal cancer screening using Cologuard test: Status: Acute
--- NOTE | 2025-05-08 13:03 | COLE_ITS ---
Date of service: 05/08/25 Time of Service: 13:03 Colonoscopy Report Pre-op diagnosis general: positive cologuard screening test Post-op diagnosis procedure note: same Procedure: Colonoscopy Surgeon: Kacey Escoto Anesthesia Type: General:No Airway Estimated blood loss (mL): 0 Pathology: none sent Complications: None Disposition: same day Prep: Miralax/Dulcolax (Good ) Procedure Description: Informed consent was obtained and the patient was taken to the procedure area. The patient was placed in left lateral decubitus position on the procedure table. Timeout was performed. Anesthesia was induced. A lubricated colon oscope was inserted through the anus and passed to the cecum. The cecum was identified by the ileocecal valve and the appendiceal orifice. The scope was then slowly withdrawn and the colonic and rectal mucosa examined. Colon was tortuous and abdominal counter pressure was required to pass through the colon. There are no colon or rectal mass lesions, polyps, AVMs. There is no inflammatory change. No diverticulosis was seen. The scope was retroflexed in the anorectal junction examined. Uncomplicated internal hemorrhoids present. Assessment and plan; Normal colonoscopy. False positive Cologuard screening test. Next screening colonoscopy will be due in 10 years. Patient is no longer a candidate for Cologuard exams.
--- NOTE | 2025-05-08 13:13 | W.ANESPOSTOP ---
Postoperative Evaluation Date, Time and Location Date Performed: 05/08/25 Time Performed: 13:10 Patient Location: Day [facility] Unit Vital Signs Most Recent Imported Vital Signs: Most Recent Vital Signs Temp Pulse Resp BP Pulse Ox 36.4 C L 57 L 13 103/67 95 05/08/25 12:56 05/08/25 12:57 05/08/25 12:57 05/08/25 12:56 05/08/25 12:57 Pain Score Most Recent Pain Score: Most Recent Pain Score Pain Level 0 05/08/25 13:01 Assessment Mental Status: Awake (Alert & Oriented to Patient Baseline) Airway and Respiratory Function: Patent airway with normal (patient baseline) respiratory exam Cardiovascular Function: Hemodynamically Stable Hydration Status: Adequately Hydrated Nausea & Vomiting: No Nausea or Vomiting Pain: Pt. Denies Any Pain Peripheral Nerve Block: Patient did not receive a nerve block
== END 2025-05-08 13:40 | disposition home or self-care (01) ==
LOC: SUR 09:56
PROVIDERS: PCP Nurse Practitioner Family; Visit Provider Surgery
PROC: 0DJD8ZZ Inspection of Lower Intestinal Tract, Via Natural or Artificial Opening Endoscopic (ICD-10-PCS; CPT 45378; principal; 2025-05-08 11:00)
DX: Z12.11 Encounter for screening for malignant neoplasm of colon (principal); R19.5 Other fecal abnormalities; K56.2 Volvulus
CPT/HCPCS: G0121; J2003; J2704

== ENCOUNTER 2025-05-10 03:22 | Outpatient (CLI) | payer MEDICARE, SELFPAY ==
--- NOTE | 2025-05-10 06:30 | DI.MAMMO_ITS ---
Exam(s) MAMMO SCREENING EXAM: MAMMO SCREENING CLINICAL HISTORY: screening,Z12.39 TECHNIQUE: Mammograms were interpreted according to the usual protocol including computer analysis with CAD system, tomosynthesis and C-view imaging. COMPARISON: 2012 FINDINGS: The breasts are composed of heterogeneously dense fibroglandular densities, Breast Density category C. No suspicious masses or suspicious microcalcifications are seen. No skin thickening or abnormal axillary lymph nodes are seen. There has been no significant change from prior exams. IMPRESSION: BI-RADS Category 1, Negative mammogram. Yearly screening mammography is recommended. Breast Density: Category C - The breasts are heterogeneously dense, which may obscure small masses. Breast density Category C or D implies that the patient has dense breast tissue. Dense breast tissue can make it harder to find cancer on a mammogram. Dense breast tissue is also associated with an increased risk of breast cancer. This information about the result of the mammogram report was provided to the patient to raise their awareness. Use this report when you speak with the patient about their risks for breast cancer, which includes their family history. At that time, you may recommend additional screening tests (Ultrasound or MRI) as these tests may add significant information. A negative radiographic report should not delay biopsy if a dominant or clinically suspicious mass is present. Up to ten percent of cancers are not identified on mammography. A negative report may reinforce clinical impression. Adenosis and dense breasts may obscure an underlying neoplasm. False positive reports average 6 to 10%.
== END 2025-05-10 03:42 ==
LOC: DI 03:22
PROVIDERS: PCP Nurse Practitioner Family; Visit Provider Nurse Practitioner Family
DX: Z12.31 Encounter for screening mammogram for malignant neoplasm of breast (principal); R92.323 Mammographic fibroglandular density, bilateral breasts
CPT/HCPCS: 77063; 77067